=== PATIENT | female | born 1945 | race Caucasian/White ===

== ENCOUNTER → 2024-06-16 | Outpatient (CLI) | payer MEDICARE, SELFPAY ==
[2024-06-16 14:25] LABS: Basophils # (Auto) 0.1 Thou/mm3 (0.0-0.2); Basophils % (Auto) 2 % (0-2.5); Eosinophils # (Auto) 0.2 Thou/mm3 (0.0-0.5); Eosinophils % (Auto) 3 % (0-10); Hematocrit 40.6 % (36.0-46.0); Hemoglobin 13.3 g/dL (12.0-16.0); Immature Granulocytes % (Auto) 0 % (0-0); Immature Granulocytes Auto 0.02 Thou/mm3 (0.00-0.00); Lymphocytes # (Auto) 2.2 Thou/mm3 (1.0-4.8); Lymphocytes % (Auto) 33 % (10-50); Mean Corpuscular HGB Conc 32.8 g/dl (31.0-37.0); Mean Corpuscular Hemoglobin 29.6 pg (25.0-35.0); Mean Corpuscular Volume 90 fL (80-100); Monocytes # (Auto) 0.6 Thou/mm3 (0.0-0.8); Monocytes % (Auto) 9 % (0-12); Neutrophils # (Auto) 3.5 Thou/mm3 (1.8-7.7); Neutrophils % (Auto) 52 % (37-80); Nucleated Red Blood Cell % 0 /100 WBC (0); Platelet Count 175 Thou/mm3 (140-440); RDW Standard Deviation 50.8 fL (36.4-46.3); White Blood Count 6.6 Thou/mm3 (3.6-11.0)
[2024-06-16 14:41] LABS: Alanine Aminotransferase 16 U/L (10-49); Albumin, Serum 4.3 gm/dL (3.4-4.8); Albumin/Globulin Ratio 1.8 (1.2-2.2); Alkaline Phosphatase 73 U/L (46-116); Anion Gap 9 (7-16); Aspartate Amino Transferase 16 U/L (0-34); BUN/Creatinine Ratio 26 Ratio (12-20); Bilirubin,Total 0.3 mg/dL (0.3-1.2); Blood Urea Nitrogen 26 mg/dL (9-23); Calcium 10.2 mg/dL (8.3-10.6); Calcium (Corrected) 10.2 mg/dL (8.5-10.1); Carbon Dioxide 27.2 mMol/L (20.0-31.0); Cardiac Risk Estimate 3.7 RATIO (3.7-5.6); Chloride 106 mMol/L (98-107); Cholesterol 161 mg/dL (132-200); Globulin 2.4 gm/dL (2.3-3.5); Glucose 88 mg/dL (74-106); Glucose Estimated Average 114 mg/dL (80-131); HDL Cholesterol 44 mg/dL (40-60); Hemoglobin A1C 5.6 % Hgb (4.8-6.0); LDL Cholesterol,Calculated 72 mg/dL (0-130); Osmolality,Calculated 286 (275-295); Potassium 4.3 mMol/L (3.4-5.1); Sodium 142 mMol/L (136-145); Total Protein 6.7 gm/dL (5.7-8.2); Triglycerides 225 mg/dL (30-150); eGFR 57 See Note
== END | disposition home or self-care (01) ==
LOC: COPL 13:24
PROVIDERS: PCP Family Medicine; Referring Provider Family Medicine; Visit Provider Family Medicine
DX: I10 Essential (primary) hypertension (principal); E03.9 Hypothyroidism, unspecified; E78.2 Mixed hyperlipidemia; R79.9 Abnormal finding of blood chemistry, unspecified
CPT/HCPCS: 36415; 80053; 80061; 83036; 84436; 84443; 85025

== ENCOUNTER → 2024-09-26 | Outpatient (CLI) | payer MEDICARE, SELFPAY ==
--- NOTE | 2024-09-26 14:30 | XR_ITS ---
Examination: Screening digital mammography, bilateral Computer aided detection 3-D breast Tomosynthesis, bilateral Date and time of exam: September 26, 2024 1424 hours Compared to mammograms dating to 02/10/2019 Indication: Screening Technique: Nonmagnified MLO, CC views of the breasts to been obtained, reconstructed from 3-D Tomosynthesis images. R2 computer aided detection program utilized for evaluation of suspicious masses and/or abnormal calcifications. 3-D Tomosynthesis images obtained. Findings: Scattered areas of fibroglandular density Grouped microcalcifications upper outer right breast No definite suspicious mass Impression: BI-RADS Category 0: Incomplete: Need additional imaging evaluation Recommend follow-up magnification spot compression views of grouped microcalcifications upper outer right breast as well as bilateral breast sonography to complete the workup
== END | disposition home or self-care (01) ==
LOC: CDIM 14:14
PROVIDERS: Referring Provider Family Medicine; Visit Provider Family Medicine
DX: Z12.31 Encounter for screening mammogram for malignant neoplasm of breast (principal); R92.0 Mammographic microcalcification found on diagnostic imaging of breast; I10 Essential (primary) hypertension; E03.9 Hypothyroidism, unspecified; E78.2 Mixed hyperlipidemia; R79.9 Abnormal finding of blood chemistry, unspecified
CPT/HCPCS: 77063; 77067

== ENCOUNTER → 2024-10-27 | Outpatient (CLI) | payer MEDICARE, SELFPAY ==
--- NOTE | 2024-10-27 09:00 | XR_ITS ---
Examination: Breast ultrasound complete, bilateral Date and time of exam: October 27, 2024 0907 hours INDICATIONS: Mammogram September 26, 2024 grouped microcalcifications upper outer right breast 6 Technique: Real-time grayscale ultrasonographic imaging bilateral breasts, including all 4 quadrants as well as nipple retroareolar and axillary regions. Findings: Sonographic images right breast 7:00 nodule irregular margins 8 x 6 x 8 mm Sonographic images left breast 12:00 cyst 4 x 4 millimeter Retroareolar circumscribed nodule with calcification 4 x 5 mm IMPRESSION: BI-RADS Category 4: Suspicious for malignancy Suspicious mass 7:00 position right breast, biopsy is needed to exclude breast carcinoma, this nodule is amenable to ultrasound-guided breast biopsy for diagnosis
--- NOTE | 2024-10-27 10:00 | XR_ITS ---
Examination: Diagnostic digital mammography, unilateral, right Computer aided detection 3-D breast Tomosynthesis, unilateral Date and time of exam: October 27, 2024 0926 hours INDICATIONS: Microcalcifications upper outer right breast on mammogram September 26, 2024 Technique: Nonmagnified MLO, CC views of the right breast have been obtained, reconstructed from 3-D Tomosynthesis images. R2 computer aided detection program utilized for evaluation of suspicious masses and/or abnormal calcifications. 3-D Tomosynthesis images obtained. Findings: Scattered areas of fibroglandular density Stable benign-appearing calcifications right breast Impression: BI-RADS category 2: Benign findings Recommend yearly follow-up mammography
[2024-10-27 10:37] LABS: T4 (Thyroxine) 9.6 mcg/dL (4.5-10.9)
[2024-10-27 10:38] LABS: Alanine Aminotransferase 14 U/L (10-49); Albumin, Serum 4.4 gm/dL (3.4-4.8); Albumin/Globulin Ratio 1.8 (1.2-2.2); Alkaline Phosphatase 83 U/L (46-116); Anion Gap 10 (7-16); BUN/Creatinine Ratio 23 Ratio (12-20); Bilirubin,Total 0.6 mg/dL (0.3-1.2); Blood Urea Nitrogen 21 mg/dL (9-23); Calcium 10.1 mg/dL (8.3-10.6); Calcium (Corrected) 10.1 mg/dL (8.5-10.1); Carbon Dioxide 27.1 mMol/L (20.0-31.0); Chloride 103 mMol/L (98-107); Creatinine (Component) 0.9 mg/dL (0.6-1.3); Globulin 2.4 gm/dL (2.3-3.5); Glucose 104 mg/dL (74-106); Osmolality,Calculated 282 (275-295); Potassium 3.9 mMol/L (3.4-5.1); Sodium 140 mMol/L (136-145); Thyroid Stimulating Hormone 0.42 uIU/mL (0.55-4.78); Total Protein 6.8 gm/dL (5.7-8.2); eGFR > 60 See Note
== END | disposition home or self-care (01) ==
LOC: CDIM 08:53 → COPL 09:38
PROVIDERS: PCP Family Medicine; Referring Provider Family Medicine; Visit Provider Radiology Diagnostic Radiology
DX: R92.8 Other abnormal and inconclusive findings on diagnostic imaging of breast (principal); R92.321 Mammographic fibroglandular density, right breast; I10 Essential (primary) hypertension; E03.9 Hypothyroidism, unspecified; E78.2 Mixed hyperlipidemia
CPT/HCPCS: 36415; 76641; 77061; 77065; 80053; 84436; 84443; G0279

== ENCOUNTER → 2024-12-11 | Outpatient (CLI) | payer MEDICARE, SELFPAY ==
[2024-12-11 15:15] LABS: Collection Type, Urine Clean Catch; Squamous Epithelial Cell,Urine 0 /hpf (0-5)
[2024-12-11 16:31] LABS: Amorphous Crystals,Urine Present (Absent); Bilirubin,Urine Negative (Negative); Blood,Urine Negative (Negative); Budding Yeast,Urine Present; Clarity,Urine Turbid (Clear/Hazy); Color,Urine Yellow (Lt Yel-Yel); Glucose, Urine Negative (Negative); Ketones,Urine Negative (Negative); Leukocyte Esterase,Urine Positive (Negative); Nitrite,Urine Positive (Negative); PH,Urine 8.5 (5.0-7.0); Protein,Urine 1+ (Neg - Trace); RBC,Urine 7 /hpf (0-3); Specific Gravity,Urine 1.023 (1.001-1.035); Triple Phosphate Crystal,Urine Rare; Urobilinogen,Urine Negative mg/dL (0.0-1.0); WBC,Urine 2 /hpf (0-5)
== END | disposition home or self-care (01) ==
LOC: SLDO 14:39
PROVIDERS: PCP Physician Assistant; Referring Provider Physician Assistant; Visit Provider Physician Assistant
DX: N39.0 Urinary tract infection, site not specified (principal)
CPT/HCPCS: 81001; 87077; 87086; 87186

== ENCOUNTER → 2025-02-19 | Outpatient (CLI) | payer MEDICARE, SELFPAY ==
--- NOTE | 2025-02-19 09:45 | XR_ITS ---
Examination: Breast ultrasound, unilateral, right complete Date and time of exam: February 19, 2025, 0937 hours, comparison October 27, 2024 INDICATIONS: Breast sonography October 27, 2024 7:00 nodule right breast, BI-RADS 4 suspicious nodule Technique: Real-time koo scale ultrasonographic imaging performed right breast including all 4 quadrants as well as nipple retroareolar and axillary region. Findings: 7:00 nodule right breast, 5 x 3 x 5 mm, with indistinct margins IMPRESSION:: BI-RADS Category 4: Suspicious for malignancy Suspicious nodule 7:00 position right breast, biopsy is needed to exclude breast carcinoma, this nodule is amenable dose gadolinium breast biopsy for diagnosis
--- NOTE | 2025-02-19 10:30 | XR_ITS ---
Examination: Diagnostic digital mammography, unilateral, right Computer aided detection 3-D breast Tomosynthesis, unilateral Date and time of exam: February 19 2025, 1012 hours INDICATIONS: Mammogram October 27, 2024, history core biopsies by Dr. Singletary Technique: Nonmagnified MLO, CC views of the right breast have been obtained, reconstructed from 3-D Tomosynthesis images. R2 computer aided detection program utilized for evaluation of suspicious masses and/or abnormal calcifications. 3-D Tomosynthesis images obtained. Findings: Scattered areas of fibroglandular density. Numerous benign calcifications. No interval suspicious mass Impression: BI-RADS category 2: Benign findings Recommend yearly follow-up mammography
== END | disposition home or self-care (01) ==
LOC: CDIM 09:25
PROVIDERS: PCP Family Medicine; Referring Provider Surgery; Visit Provider Surgery
DX: R92.321 Mammographic fibroglandular density, right breast (principal); N63.13 Unspecified lump in the right breast, lower outer quadrant
CPT/HCPCS: 76641; 77061; 77065; G0279

== ENCOUNTER → 2025-04-07 | Outpatient (CLI) | payer MEDICARE, SELFPAY ==
--- NOTE | 2025-04-07 09:30 | XR_ITS ---
Examination: Knee, left, 3 views Technique: Knee AP, lateral, oblique 3 views Date and time of exam: April 07, 2025, 0946 hours INDICATIONS: Patient fell 3 days ago with injury to the knee, knee pain. FINDINGS: Severe osteopenia. No fracture. Moderate osteoarthritis medial patellofemoral joints IMPRESSION: No acute fracture
--- NOTE | 2025-04-07 09:30 | XR_ITS ---
EXAMINATION: Ankle, left 3 views. Technique: Ankle AP, oblique, lateral 3 views Date and time of exam: April 07, 2025, 0946 hours INDICATIONS: Patient fell 3 days ago with injury to the ankle, ankle pain. FINDINGS: Acute fracture distal fibula, 23 mm from the fibular tip No displacement No ankle dislocation IMPRESSION: Acute fracture distal fibula, 23 mm from the fibular tip
== END | disposition home or self-care (01) ==
LOC: CDIM 09:05
PROVIDERS: PCP Family Medicine; Referring Provider Nurse Practitioner Family; Visit Provider Nurse Practitioner Family
DX: S89.92XA Unspecified injury of left lower leg, initial encounter (principal); S82.402A Unspecified fracture of shaft of left fibula, initial encounter for closed fracture; W19.XXXA Unspecified fall, initial encounter
CPT/HCPCS: 73562; 73610

== ENCOUNTER 2025-05-12 18:21 | Emergency (ER) | payer MEDICARE, SELFPAY ==
[2025-05-12 18:48] VITALS: BP 187/85; PULSE 64; RESP 18; TEMP 36.4; O2SAT 98; BMI 29.1
--- NOTE | 2025-05-12 18:50 | XR_ITS ---
Examination: Hand, right 3 views Technique: Hand AP, oblique, lateral 3 views Date and time of exam: May 12, 2025, 1920 hours INDICATION: Patient fell today with injury to the hand and wrist, hand pain wrist pain. FINDINGS: Severe osteopenia. Acute fracture distal radial metaphysis with marked dorsal displacement of the distal fracture fragment Also displaced fracture distal ulna Significant osteoarthritis interphalangeal joints and first carpometacarpal joint Metacarpals digits appear intact IMPRESSION: Acute displaced fracture distal radial metaphysis and acute displaced fracture distal ulna
--- NOTE | 2025-05-12 18:50 | XR_ITS ---
Examination: CT cervical spine without contrast 2-D sagittal reconstructions 2-D coronal reconstructions 3-D reconstructions. Exam date and time: May 12, 2025, 1953 hours INDICATIONS: Ground-level fall today with injury of the neck, neck pain CTDI:vol (mGy) 14 DLP: (mGycm) 279 Technique: Multiple 2 mm axial sections of the cervical spine have been obtained. The coronal and sagittal reconstructions have been obtained. 3-D reconstructions have been obtained. Low dose protocols were performed. One or more of the following dose reduction techniques were used; automated exposure control, adjustment of the mA and/or KV according to patient size, use of iterative reconstruction technique. Findings: Axial sections demonstrate intact base of the skull. C1 exhibit satisfactory relationship to the odontoid. No acute cervical vertebral body fracture seen. Alignment posterior spinous processes satisfactory. Impression: No acute cervical fracture.
--- NOTE | 2025-05-12 18:50 | XR_ITS ---
EXAMINATION: Right wrist 2 views TECHNIQUE: AP lateral right wrist 2 views Date and time: May 021930 hours INDICATION: Patient fell today with into the wrist, wrist pain. FINDINGS: Acute fracture distal radial metaphysis, marked dorsal displacement of the distal radial fracture fragment Also displaced distal ulna Severe osteopenia IMPRESSION: Acute fracture distal radial metaphysis with marked dorsal displacement of the distal radial fracture fragment
--- NOTE | 2025-05-12 18:50 | XR_ITS ---
Examination: CT brain head without contrast. 2-D sagittal coronal reconstructions Date and time of exam: May 12, 2025, 195 hours INDICATION: Patient fell today with injury to the back of the head, head pain CTDI: vol (mGy): 52.6 DLP: (mGycm): 1014 Technique: Multiple CT axial sections of the brain have been obtained, 5 mm slice thickness. Contrast has not been administered. 2-D sagittal, coronal reconstructions have been obtained Low dose protocols were performed. One or more of the following dose reduction techniques were used; automated exposure control, adjustment of the mA and/or KV according to patient size, use of iterative reconstruction technique. Findings: No significant ventricular enlargement. Intra-axial or extra-axial hemorrhage density is not seen. No mass effect or midline shift Basal cisterns are not remarkable. Fourth ventricle is midline. Cranial vault intact. Impression: Negative for acute hemorrhage, mass effect or midline shift
--- NOTE | 2025-05-12 21:10 | PD.EDRME ---
Rapid Medical Screening Exam RME Arrival date/time: 05/12/25 18:21 This is a case of 80-year-old female with history of hypertension came in in the emergency room due to fall injury patient stated that she tripped and fell and hit his head on the floor patient also have left wrist pain and deformity no loss of conciouness Chief Complaint: Hand/Wrist Problems Time Seen by Provider: 05/12/25 18:24 Vital signs: Vital Signs Temperature 97.5 F 05/12/25 18:48 Pulse Rate 64 05/12/25 18:48 Respiratory Rate 18 05/12/25 18:48 Blood Pressure 187/85 H 05/12/25 18:48 Pulse Oximetry (%) 98 05/12/25 18:48 Oxygen Delivery Method Room Air 05/12/25 18:48 Exam: Moderate tenderness and deformity on the left wrist patient neurological exam is normal awake alert oriented x 4 no focal deficit GCS 15/15 steady gait Clinical Impression: Left wrist dislocation and fracture head injury
--- NOTE | 2025-05-12 21:47 | XR_ITS ---
EXAMINATION: Right wrist 2 views TECHNIQUE: AP lateral right wrist 2 views Date and time: May 12, 2025, 2147 hours, comparison May 12, 2025 7:36 p.m. INDICATIONS: Post reduction films wrist fractures today FINDINGS: Markedly displaced fracture distal radial metaphysis again noted, dorsal displacement of the distal radial fracture fragment Distal ulnar fracture again identified Severe osteopenia IMPRESSION: There remains marked dorsal displacement of the fracture distal radius
--- NOTE | 2025-05-12 22:01 | EDNOTE_ITS ---
ED General RME/HPI General Chief complaint: Hand/Wrist Problems Stated complaint: RIGHT WRIST INJURY S/P FALL Time Seen by Provider: 05/12/25 18:24 Arrival date/time: 05/12/25 18:21 CC: Right wrist pain HPI ground-level fall approximately 30 minutes ago. Patient states he fell forward reaching over the wrist. Patient has obvious deformity and localized pain on the wrist. The patient denies loss of consciousness or altered level of consciousness. The patient does have a boot on her left foot. Patient denies nausea vomiting blurred vision seeing spots. RME / HPI RME / HPI narrative: 05/12/25 18:21 This is a case of 80-year-old female with history of hypertension came in in the emergency room due to fall injury patient stated that she tripped and fell and hit his head on the floor patient also have left wrist pain and deformity no loss of conciouness Exam: Moderate tenderness and deformity on the left wrist patient neurological exam is normal awake alert oriented x 4 no focal deficit GCS 15/15 steady gait Impression: Left wrist dislocation and fracture head injury Related Data Home Medications ?Medication ?Instructions ?Recorded ?Confirmed ASPIRIN (ASA 81MG EC) 81 mg PO QDAY ##0 07/29/15 Calcium Carbonate/Vitamin D3 1,200 mg PO QDAY ##0 07/19 (Calcium + D 600 Mg Tablet) atenolol 50 mg tablet 50 mg PO QDAY ##0 07/29/15 cholecalciferol (vitamin D3) 50 2,000 mg PO BID #0 cap s 07/29/15 mcg (2,000 unit) capsule (D3-2000) fesoterodine 8 mg tablet,extended 8 mg PO QDAY ##0 03/05 release 24 hr (Toviaz) levothyroxine 88 mcg tablet 88 mg PO QDAY #0 tabs 07/19 (Synthroid) rosuvastatin 5 mg tablet (Crestor) 5 mg PO QDAY #0 tab s 07/29/15 celecoxib 200 mg capsule (Celebrex) 200 mg PO BID #0 c aps 06/01/16 raloxifene 60 mg tablet (Evista) 60 mg PO QDAY #0 tabs 06/01/16 Cyanocobalamin (B12 Health Booster) ##0 10/09/16 Charlotte-3 Fatty Acids (OTC) * (FISH 1,000 mg PO BID #0 c aps 10/09/16 OIL (OTC) *) amlodipine 5 mg tablet (Norvasc) 5 mg PO QDAY #0 tabs 10/09/16 Previous Rx's ?Medication ?Instructions ?Recorded ibuprofen 600 mg tablet 600 mg PO Q8H PRN pain #20 t abs 05/12/25 Allergies Allergy/AdvReac Type Severity Reaction Status Date / Time NKA* Allergy Uncoded 05/12/25 18:24 Review of Systems Review of Systems Narrative Review of Systems: GEN: No fever, no chills, no weight loss EYES: No discharge, no visual changes, no pain HEENT: No ear pain, no congestion, no sore throat PULM: No shortness of breath, no cough, no congestion CV: No chest pain, no dyspnea on exertion, no palpitations GI: No nausea, no vomiting, no diarrhea, no pain, no constipation : No frequency, no urgency, no dysuria MUSC/SKEL: + joint pain, no back pain SKIN: No rash PSYCH: No hallucinations, no depression HEME/LYMPH: No easy bleeding or bruising tendencies NEURO: No weakness, no headache Past Medical History Past Medical History CARDIAC: Positive Hypercholesterolemia and Hypertension; Negative Congestive Heart Failure RESPIRATORY: Negative Chronic Obstructive Pulmonary Disease (COPD) GENITOURINARY: Negative Renal Disease ENDOCRINE: Positive Hypoglycemia; Negative Diabetes Mellitus Type 1 or Diabetes Mellitus Type 2 Social History SMOKING STATUS: Never smoker ED Exam Narrative Physical exam: [General: In mild discomfort but not in any acute distress Head normocephalic HEENT: Within acceptable limits Neck is supple nontender Chest equal chest rise nontender to palpation Respiratory: Clear to auscultation no wheezes crackles or rubs CV: Rate rhythm is regular no murmurs rubs or clicks Abdomen is distended secondary to body habitus soft nontender no masses positive bowel sounds all 4 quadrants Back: No CVA tenderness no spinous process tenderness from cervical spine thoracic and lumbar spine Skin: Intact no petechiae rash induration ulceration or crepitus Extremities: Obvious deformity to the right wrist. Cap refill in the digits less than 2 seconds neurosensory intact moving the right elbow and shoulder without complication. Moving all other extremities against resistance cap refill less than 2 seconds neurosensory intact Neuro: Awake alert oriented x3 Glascow coma 15 no focal deficits] Course Course Course Narrative: Patient refused all narcotic and anesthesia. Requesting NSAIDs for home. Quality Measures none Orders Category Date Time Status CT cervical spine wo con Stat Exams 05/12/25 18:[address] head/brain wo con Stat Exams 05/12/25 18:50 Completed XR hand RT 2V Stat Exams 05/12/25 18:50 Completed XR wrist RT 2V Stat Exams 05/12/25 18:50 Completed XR wrist RT 2V Stat Exams 05/12/25 21:47 Taken HYDROcodone*/APAP 5/325 [Kimberly 5/325] Med 05/12/25 21:11 Discontinued 1 tab PO X1 ONE Vital Signs Vital signs: Vital Signs Temperature 97.5 F 05/12/25 18:48 Pulse Rate 64 05/12/25 18:48 Respiratory Rate 18 05/12/25 18:48 Blood Pressure 187/85 H 05/12/25 18:48 Pulse Oximetry (%) 98 05/12/25 18:48 Oxygen Delivery Method Room Air 05/12/25 18:48 PROCEDURES: Procedure Comment Patient was given the option of conscious sedation or hematoma block. Patient chose hematoma block. Verbal consent for hematoma block obtained. Using 3 injection sites with a #23 needle a total of 12 mL of 1% lidocaine without epinephrine injected into the wrist. Then with longitudinal traction and hyperextension of the flexion motion of the wrist used in the bone tips attempted to realign with the bone shaft. Post reduction x-rays show minimal improvement. Patient tolerated the procedure well. At this time I feel there is poor success into reattempting this as I might damage the skin. Discussed with the patient and she is to follow-up with her orthopedic surgeon. Patient's wrist placed in a single sugar-tong. Cap refill in the digits less than 2 seconds neurosensory intact. Discharge Plan Plan Patient Disposition: HOME (Self Care) Patient condition on transfer: Stable Prescriptions/Referrals Prescriptions/Med Rec: New ibuprofen 600 mg tablet 600 mg PO Q8H PRN (Reason: pain) Qty: 20 0RF No Action ASPIRIN (ASA 81MG EC) 81 MG TABLET, ENTERIC COATED 81 mg PO QDAY Qty: 0 levothyroxine [Synthroid] 88 MCG tablet 88 mg PO QDAY Qty: 0 atenolol 50 MG tablet 50 mg PO QDAY Qty: 0 rosuvastatin [Crestor] 5 MG tablet 5 mg PO QDAY Qty: 0 cholecalciferol (vitamin D3) [D3-2000] 2,000 UNIT capsule 2,000 mg PO BID Qty: 0 fesoterodine [Toviaz] 8 MG tablet extended release 24 hr 8 mg PO QDAY Qty: 0 Calcium Carbonate/Vitamin D3 (Calcium + D 600 Mg Tablet) 1 EACH tablet 1,200 mg PO QDAY Qty: 0 celecoxib [Celebrex] 200 MG capsule 200 mg PO BID Qty: 0 raloxifene [Evista] 60 MG tablet 60 mg PO QDAY Qty: 0 amlodipine [Norvasc] 5 MG tablet 5 mg PO QDAY Qty: 0 Charlotte-3 Fatty Acids (OTC) * (FISH OIL (OTC) *) 500 MG capsule 1,000 mg PO BID Qty: 0 Cyanocobalamin (B12 Health Booster) 1,000 MCG/15 ML ORAL.SUSP Qty: 0 Referrals: Edison Rogers MD [Primary Care Provider, Family Practice] - In 1 week Brooks Pappas MD [Physician, Orthopedics] - In 1 week Problem List Clinical Impression: Fracture of wrist, Fall from ground level Patient/Caregiver Discharge Instructions Education Materials: ED Fracture, Wrist, General Additional Instructions: Keep the splint on do not get it wet and do not take it off. Follow-up with an orthopod listed above or an orthopod of your preference. If there is a worsening of symptoms in spite of the medications return to the emergency room for reevaluation. Print Language: Greenlandic Stand Alone Forms: Angelia Award Info., Patient Portal Info Letter, Work/School Release PA/VIRTUAL OFFICE ASSISTANT Supervising Physician PA/VIRTUAL OFFICE ASSISTANT Supervising Physician: Mohinder Chase ENP [facility] Clinical Information Provided by: patient Medical Records reviewed [facility] Meds/Rx considered, not ordered None Labs/Rad/Tests considered, not ordered None Chronic Illness/Social Conditions Explain: Recent left foot surgery EKG EKG not done Labs Labs: none Imaging Imaging interpretation: interpreted by me Imaging Interpretation(s): Wrist x-ray shows patient has distal radius ulnar fracture with dislocation. Hand x-ray shows no hand fractures. Head CT and C-spine are negative for any acute finding. Medication Administration(s) Medication Administration History Discontinued Medications Hydrocodone Bitart/Acetaminophen (Hydrocodone/Apap 5/325 Tablet) 1 tab PO X1 ONE Stop: 05/12/25 21:12 Diagnosis Differential Diagnosis ED Complaint MDM: Wrist fracture closed head injury neck fracture
[2025-05-12 22:18] VITALS: BP 160/99; PULSE 70; RESP 18; TEMP 36.5; O2SAT 98
== END 2025-05-12 22:38 | disposition home or self-care (01) ==
PROVIDERS: Emergency Provider Emergency Medicine; PCP Family Medicine
DX: S52.591A Other fractures of lower end of right radius, initial encounter for closed fracture (principal); S52.601A Unspecified fracture of lower end of right ulna, initial encounter for closed fracture; S19.9XXA Unspecified injury of neck, initial encounter; S09.90XA Unspecified injury of head, initial encounter; I10 Essential (primary) hypertension; W18.30XA Fall on same level, unspecified, initial encounter
CPT/HCPCS: 25565; 70450; 72125; 73100; 73120; 99282; A4565